=== PATIENT | male | born 1955 | race Hispanic/Latino ===

== ENCOUNTER 2019-11-15 08:41 | Emergency (ER) | payer OTHER ==
--- NOTE | 2019-11-15 09:29 | ERPHSYRPT ---
- History of Present Illness Source: patient Exam Limitations: no limitations Patient Subjective Stated Complaint: Pt takes multiple medications for anxiety, bipolar, htn, cholesterol, and has been in [place] due to an emergency and the last time he filled his scripts is September 28 and he has been out for a couple of weeks and he is getting some high anxiety, Triage Nursing Assessment: Pt came to the ER due to not having any of his meds and not able to get them until his insurance goes into effect next month and can get into the doctor, psych didn't have any openings for [address] Erwin won't be here for 2 weeks, pt went to [facility] and they sent him here , hypertensive, lungs clear, no edema, denies pain, no other issues at this time Physician History: Patient is a 64-year-old male presents to our ED for medication refill. Patient recently came to [place] from [place]. Patient currently does not have insurance coverage. Patient unable to see primary care physician due to scheduling difficulties. Patient has no complaints. No chest pain no shortness of breath. No nausea vomiting or diaphoresis. Patient has history of anxiety. Patient states that he requires Xanax. He feels anxious that he has not taken his Xanax. Patient requesting other services other than medication refill. Timing/Duration: week(s) Severity: mild Modifying Factors: Improves With: other Associated Symptoms: No nausea, No vomiting, No abdominal pain, No shortness of breath, No heartburn, No diaphoresis, No cough, No chills, No chest pain, No fever, No headaches, No loss of appetite, No malaise, No syncope Allergies/Adverse Reactions: No Known Drug Allergies Allergy (Verified 11/15/19 09:11) - Review of Systems Constitutional: No Fever, No Chills Eyes: No Symptoms Ears, Nose, & Throat: No Symptoms Respiratory: No Cough, No Dyspnea Cardiac: No Chest Pain, No Edema, No Syncope Abdominal/Gastrointestinal: No Abdominal Pain, No Nausea, No Vomiting, No Diarrhea Genitourinary Symptoms: No Dysuria Musculoskeletal: No Back Pain, No Neck Pain Skin: No Symptoms, No Rash Neurological: No Dizziness, No Focal Weakness, No Sensory Changes Psychological: No Symptoms Endocrine: No Symptoms Immunological/Allergic: No Symptoms All Other Systems: Reviewed and Negative - Past Medical History Pertinent Past Medical History: Yes Neurological History: TIA Cardiac History: High Cholesterol, Hypertension Psycho-Social History: Anxiety, Bipolar Other Medical History: HEP A, B and C - Past Surgical History Past Surgical History: Yes Other Surgical History: neck, lumbar 4,5,6 - Social History Smoking Status: Current every day smoker How long have you smoked: 52 years Exposure to second hand smoke: Yes Drug Use: none Patient Lives Alone: Yes - Nursing Vital Signs Nursing Vital Signs: Initial Vital Signs Temperature 98.3 F 11/15/19 08:50 Pulse Rate 74 11/15/19 08:50 Blood Pressure 183/113 11/15/19 08:50 O2 Sat by Pulse Oximetry 97 11/15/19 08:50 Pain Scale Pain Intensity 0 - Physical Exam General Appearance: no apparent distress, alert Eye Exam: PERRL/EOMI, eyes nml inspection Ears, Nose, Throat Exam: normal ENT inspection, TMs normal, pharynx normal, moist mucous membranes Neck Exam: normal inspection, non-tender, supple, full range of motion Respiratory Exam: normal breath sounds, lungs clear, No chest tenderness, No respiratory distress Cardiovascular Exam: regular rate/rhythm, normal heart sounds, normal peripheral pulses, No murmur Gastrointestinal/Abdomen Exam: soft, normal bowel sounds, No tenderness, No mass Male Genitalia Exam: No normal genitalia, No hernia, No testicular tenderness Rectal Exam: deferred Back Exam: normal inspection, normal range of motion, No CVA tenderness, No vertebral tenderness Extremity Exam: normal inspection, normal range of motion, pelvis stable Neurologic Exam: alert, oriented x 3, cooperative, normal mood/affect, nml cerebellar function, nml station & gait, sensation nml, No motor deficits Skin Exam: normal color, warm, dry, No rash Lymphatic Exam: No adenopathy SpO2 Interpretation: normal SpO2: 97 O2 Delivery: Room Air - Course Nursing assessment & vital signs reviewed: Yes - Progress Progress: unchanged, improved Progress Note: Patient reassessed. He has no complaints. Patient requesting medication refill only. We explained the patient we cannot provide him with long-term prescription for Xanax. Patient understands. 11/15/19 09:28 11/15/19 11:34 Patient did not immediately know what medications he was taking. Shortly after we were ordering his medications, patient walked out of the room to the nursing station upset that he had not received any BP medications. We explained to patient that were were in the process of entering the medications, but patient refused to work with us and decided to leave AMA. We transmitted his BP and HL medications to his pharmacy. Due to computer issues we were not able to transmit the Xanax. We printed out a hard copy of this prescription. Patient return to the ED for this prescription. Patient absconded our ED prior to receiving discharge paperwork. Discussed with Dr.: Other (Absconded before EDMD could speak to patient.) Will see patient in: office Counseled pt/family regarding: diagnosis - Departure Departure Disposition: Home Clinical Impression: Medication refill Condition: Stable Critical Care Time: No Referrals: JAMIE GARZA [Primary Care Provider] - Prescriptions: Alprazolam 1 mg [Xanax 1 mg] 2 mg PO DAILY 4 Days #4 tablet Amlodipine Besylate/Benazepril [Amlodipine-Benazepril 5-20 mg] 1 each PO DAILY 14 Days #14 capsule Atorvastatin Calcium [Lipitor] 40 mg PO DAILY 14 Days #14 tablet Carvedilol 12.5 mg [Coreg 12.5 mg] 12.5 mg PO BID 14 Days #28 tablet Hydrochlorothiazide 25 mg [hydroDIURIL 25 MG] 25 mg PO DAILY 14 Days #14 tablet
[2019-11-15 09:53] VITALS: BP 185/110; PULSE 62
[2019-11-15 10:58] VITALS: O2SAT 97
== END 2019-11-15 11:00 | disposition left against medical advice (07) ==
LOC: ED 08:41
DX: Z76.0 Encounter for issue of repeat prescription (principal)
CPT/HCPCS: 99283